=== PATIENT | female | born 1950 | race Caucasian/White ===

== ENCOUNTER 2019-01-18 12:23 | Outpatient (CLI) | payer MEDICARE, OTHER ==
--- NOTE | 2019-01-18 15:59 | MRI ---
FExam: Brain MRI with and without contrast HISTORY: Evaluate for CVA COMPARISON: None FINDINGS: Gradient echo sequence: No hemorrhage Calvarium: Appropriate T1 marrow signal intensity Midline brain parenchyma: Unremarkable Cerebrum:No parenchymal mass, mass effect or midline shift. Brain volume, age-appropriate. Cortical g ray-white matter differentiation is preserved T2 and FLAIR white matter hyperintensities due to chronic small vessel ischemic changes. Ventricles: No evidence of hydrocephalus. Sinuses and mastoid air cells: Mucous retention cyst in the left maxillary sinus Diffusion: Central arterial flow is maintained. Absent restricted diffusion. Postcontrast images: No pathologic enhancement of the brain parenchyma. IMPRESSION: 1. Absent restricted diffusion. No acute infarct 2. Brain volume, age-appropriate. 3. Chronic small vessel ischemic changes of the white matter.
== END 2019-01-18 12:24 | disposition home or self-care (01) ==
LOC: SCSMRI 12:23
PROVIDERS: ATTEND Specialist
DX: F04 Amnestic disorder due to known physiological condition (principal)
CPT/HCPCS: 70553

== ENCOUNTER 2019-03-26 13:05 | Outpatient (CLI) | payer MEDICARE, OTHER ==
--- NOTE | 2019-03-26 13:43 | ULT ---
"PRELIMINARY REPORT" Exam: CAROTID ULTRASOUND: HISTORY: Transient global amnesia. COMPARISON: None. TECHNIQUE: Grayscale, color flow, Doppler imaging, and spectral waveform analysis performed. FINDINGS: Right carotid: Intimal thickness of the common carotid artery is 0.06 cm. Hypoechoic focus in the rig ht neck measuring 1.4 cm is noted. There is a small calcified plaque in the proximal internal carotid artery. Peak systolic velocity of the common carotid artery is 110.8 cm/s. Peak systolic [place] of the internal carotid artery is 71.5 cm/s. Systolic ICA to CCA ratio 0.5. Left carotid: Intimal thickness of the common carotid artery is 0.07 cm. There is a nonspecific soft tissue neck lymph node measuring 1.3 cm in the maximum dimension. No significant atherosclerotic disease. Peak systolic velocity of the common carotid artery is 79.1 cm/s. Peak systolic velocity of the internal carotid artery is 75.9 cm. Right systolic ICA/CCA ratio is 0.65. Left systolic ICA/CCA ratio is 0.96. Antegrade flow in both vertebral arteries. IMPRESSION: 1. No sonographic evidence of hemodynamically significant stenosis. 2. Bilateral soft tissue neck lymph nodes. Postcontrast soft tissue neck CT may be beneficial. Transcribed Date/Time: 03/26/2019 2:03 PM
== END 2019-03-26 13:06 | disposition home or self-care (01) ==
LOC: SCSULT 13:05
PROVIDERS: ATTEND Psychiatry & Neurology Neurology
DX: G45.4 Transient global amnesia (principal)
CPT/HCPCS: 93880

== ENCOUNTER 2020-05-14 12:08 | Outpatient (CLI) | payer MEDICARE, OTHER ==
--- NOTE | 2020-05-14 13:07 | ULT ---
US Thyroid STANDARD History: Overactive thyroid Comparison: None Findings: Real-time grayscale and color evaluation of the thyroid was performed. The thyroid is enlarged and markedly hypervascular. The right lobe measures 5.7 x 2.5 x 2.2 cm and th e left lobe measures 5.4 x 2.4 x 2.8 cm. Isthmus measures 8 mm in AP dimension. Simple cyst inferior left lobe measuring 8 mm. Impression: 1. No suspicious thyroid nodule. 2. Enlarged hyperemic thyroid suggesting active thyroiditis.
== END 2020-05-14 12:09 | disposition home or self-care (01) ==
LOC: SCSULT 12:08
PROVIDERS: ATTEND Specialist
DX: E05.90 Thyrotoxicosis, unspecified without thyrotoxic crisis or storm (principal); E04.9 Nontoxic goiter, unspecified
CPT/HCPCS: 76536

== ENCOUNTER 2020-07-07 12:38 | Outpatient (CLI) | payer MEDICARE, OTHER ==
--- NOTE | 2020-07-15 12:17 | NM ---
Exam: Nuclear medicine I-131 initial treatment HISTORY: Thyrotoxicosis. FINDINGS: Successful thyroid treatment. Patient ingested the I-131 tablet TECHNIQUE: Consent was obtained to perform a I-131 treatment. Written benefits were discussed with th e patient. Patient was given a 11.5 mCi I-131 tablet. No immediate or postprocedure complications IMPRESSION: Successful treatment.
== END 2020-07-07 12:39 | disposition home or self-care (01) ==
LOC: NM 12:38
PROVIDERS: ATTEND Internal Medicine Endocrinology, Diabetes & Metabolism
DX: E05.90 Thyrotoxicosis, unspecified without thyrotoxic crisis or storm (principal)
CPT/HCPCS: 79005; A9517 ×2

== ENCOUNTER 2022-11-18 14:05 | Outpatient (CLI) | payer MEDICARE, OTHER | END 2022-11-18 14:06 | disposition home or self-care (01) | LOC: BICRAD 14:05 | PROVIDERS: ATTEND Plastic Surgery Surgery of the Hand | DX: M25.551 Pain in right hip (principal); M54.50 Low back pain, unspecified; M47.816 Spondylosis without myelopathy or radiculopathy, lumbar region; M46.06 Spinal enthesopathy, lumbar region | CPT/HCPCS: 72100 ==

== ENCOUNTER 2022-12-15 08:33 | Outpatient (CLI) | payer OTHER | END 2022-12-15 08:34 | disposition home or self-care (01) | LOC: SCSMRI 08:33 | PROVIDERS: ATTEND Specialist | DX: M54.40 Lumbago with sciatica, unspecified side (principal); M47.816 Spondylosis without myelopathy or radiculopathy, lumbar region; M25.78 Osteophyte, vertebrae; M47.815 Spondylosis without myelopathy or radiculopathy, thoracolumbar region; M51.35 Other intervertebral disc degeneration, thoracolumbar region; M51.36 Other intervertebral disc degeneration, lumbar region; M48.062 Spinal stenosis, lumbar region with neurogenic claudication; M47.817 Spondylosis without myelopathy or radiculopathy, lumbosacral region | CPT/HCPCS: 72148 ==